=== PATIENT | male | born 1985 | race Caucasian/White ===

== ENCOUNTER 2017-01-03 10:03 | Emergency (ER) | payer BC ==
--- NOTE | 2017-01-03 10:31 | DIAGNOSTIC IMAGING REPORT ---
PROCEDURE: XR CHEST 1 VIEW INDICATION: CHEST PAIN TECHNIQUE: Portable AP view 10:00 a.m. COMPARISON: None. FINDINGS: Lungs are clear. Heart and mediastinum are normal. Thorax is normal. IMPRESSION: 1. Negative chest.
--- NOTE | 2017-01-03 15:02 | ED NURSING NOTES ---
Clinical Report - Nurses [facility] [address] [place] [place] [address] 01/03/2017 10:05 Patient: KIMMY MARY TRIAGE Triage time 1010. Acuity: LEVEL 3. Chief Complaint: CHEST PAIN and DISCOMFORT and ("heart racing" and anxiety, chest tightness). Alert. --10:18 Yuliet Latham R.N. 10:11 01/03/17. BP: 160/84. HR: 137. RR: 22. O2 saturation: 100%. Pain level now: 0/10. Additional comments: pt feels more calm now, states pain went away. --10:18 Yuliet Latham R.N. Weight: 99.7 kg stated. Height/Length: 74 inches Per Patient. BMI: 28.2. --10:12 Yuliet Latham R.N. Medications None. --10:14 Yuliet Latham R.N. Allergies No Known Drug Allergy. --10:14 Yuliet Latham R.N. History Arrived by private vehicle. Historian: patient. Unaccompanied. Primary physician (none). This started just prior to arrival and today. Onset. 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 SOCIAL HX: Light tobacco smoker. Alcohol use. (3-4 beers every other day). --10:18 Yuliet Latham R.N. PROBLEMS: Anxiety Reaction. --10:15 Yuliet Latham R.N. ADDITIONAL SURGERIES: Polyps. --10:15 Yuliet Latham R.N. Interventions ID band on patient. To room. --10:18 Yuliet Latham R.N. PHYSICAL ASSESSMENT 10:15. To room via stretcher. Patient gowned. GENERAL / NEURO / PSYCH: Alert. Oriented X 4. Appears anxious. RESPIRATORY: Mild respiratory distress. Chest wall tenderness. CVS: Cardiac rhythm: sinus tachycardia. GI / : Abdomen soft. EXTREMITIES: No lower extremity edema. SKIN: Skin is warm and dry. --10:26 Madeleine Moore R.N. NURSING PROGRESS NOTES 10:11. Oxygen administered by nasal cannula at 2 liters. rn family placed on patient; (ST). Patient gowned. Head of bed elevated. Reassurance given. Patient identifiers checked. Call light placed in reach. Side rails up. Bed placed in lowest position. Patient ready for evaluation- chart flagged. ( placed in room by triage nurse). --10:23 Madeleine Moore R.N. 10:13. EKG time: (1013). EKG was ordered, performed by a tech and shown to the ED physician. done by PHUONG Bermudez. --10:24 Madeleine Moore R.N. 10:15. Care transferred and report received. --10:25 Madeleine Moore R.N. 10:17 01/03/2017 Site #1 started via IV in the left antecubital space with an 20g angiocath, with aseptic technique and good blood return; one attempt. Blood drawn: rainbow set. Labeled in the presence of the patient and sent to the lab. Saline lock flushed with 10 mL saline. --10:27 Madeleine Moore R.N. 10:26 01/03/17. Portable chest x-ray ordered, performed and shown to the ED physician. --10:26 Madeleine Moore R.N. 10:32 01/03/2017 Started bag #1 1000 mL IV Fluids IV NS (Saline); at 1000 mL/hr over 1 hour(s) via site #1 via IV pump. IV patency established. IV site checked: no pain, redness, or swelling. IV flushed thoroughly pre- and post-medication administration. --10:42 Madeleine Moore R.N. 10:41 01/03/17. Finger stick glucose: 113 mg/dL. --10:41 Barrington Smallwood 10:43 01/03/17. BP: 154/72. HR: 107. RR: 22. O2 saturation: 100% on nasal cannula. Temp: deferred. Pain level now: 0/10. --10:44 Madeleine Moore R.N. 10:55 01/03/2017 Potassium Chloride (Potassium Chloride ER) PO Capsules 40 meq given. Allergies verified and confirmed 5 rights. --11:00 Madeleine Moore R.N. 10:50. ( Lab called with critical value K= = 2.7 ERMD notified). --11:02 Madeleine Moore R.N. 11:06 01/03/2017 Famotidine PO Tablets 20 mg given. --11:06 Madeleine Moore R.N. 11:00 ERMD in to talk with pt about lab results. Pt c/o epigastric burning. additional meds ordered and given. --11:07 Madeleine Moore R.N. 11:10 01/03/17. BP: 154/79. HR: 97. RR: 18. O2 saturation: 100%. Temp: deferred. Pain level now: 010. --11:11 Madeleine Moore R.N. 11:13 01/03/17. ( pt states "heartburn is better" resting quietly, watching t.v.). --11:13 Madeleine Moore R.N. 11:30. Patient ID band checked for patient name and birthdate. Clean catch urine collected with return of yellow-colored clear urine; sample sent to lab for urinalysis, culture and drug screen. Specimen labeled in the presence of the patient (voided 400cc at bedside with urinal, UA to lab). --11:32 Madeleine Moore R.N. 11:30 01/03/17. BP: 114/74. HR: 94. RR: 18. O2 saturation: 100%. Temp: deferred. Pain level now: 0/10. --11:34 Madeleine Moore R.N. 12:12 01/03/17. BP: 125/72. HR: 88. RR: 18. O2 saturation: 100%. Temp: deferred. Pain level now: 0/10. --12:12 Madeleine Moore R.N. 13:38 01/03/17. BP: 126/75. HR: 87. RR: 18. O2 saturation: 98% on room air. Temp: deferred. Pain level now: 0/10. Additional comments: watching rae conde for additional lab draw . --13:39 Madeleine Moore R.N. 11:40 01/03/2017 IV Fluids IV NS Discontinued: bag #1 infused. Total amount infused: 1000 mL. IV patency established. IV site checked: no pain, redness, or swelling. IV flushed thoroughly. (converted to saline lock). --14:02 Madeleine Moore R.N. 14:05 01/03/17. Patient ID band checked for patient name and birthdate. Blood samples drawn by lab per protocol ; labeled in presence of the patient and sent to lab. --14:05 Madeleine Moore R.N. 14:35. ( at bedside talking with pt. denies pain, waiting for repeat lab). --15:11 Madeleine Moore R.N. 14:55 01/03/2017 Site #1 removed upon discharge. Bandaid applied. --15:15 Madeleine Moore R.N. DISPOSITION / DISCHARGE 15:05. Condition at departure: improved and stable. No learning barriers present. Discharge instructions provided and reviewed with the patient and spouse. Reviewed medication(s) (zofran, alprazolam). Patient and spouse verbalized understanding. The patient was discharged home and accompanied by spouse. He left the Emergency Department ambulatory and via private vehicle. Spouse driving. --15:11 Madeleine Moore R.N. 15:00 01/03/17. BP: 125/68. HR: 78. RR: 18. O2 saturation: 99%. Temp: deferred. Pain level now: 0/10. --15:11 Madeleine Moore R.N. 15:05. KAMALJIT COMA SCORE: Kamaljit Coma Scale: 15- eyes open spontaneously (4); best verbal response- oriented x 4 (5); best motor response- obeys commands (6). --15:14 Madeleine Moore R.N. Locked/Released at 01/03/2017 15:15 by Madeleine Moore R.N.
--- NOTE | 2017-01-03 15:02 | ED ORDER SUMMARY ---
..... Patient: KIMMY MARY OrderSheet [facility] VisitID: [id number] [place] [address] 31y, M Registration Date/Time: 01/03/2017 ORDER SHEET Weight: 99.7 kg (stated) Allergies: No Known Drug Allergy GENERAL ORDERS: Chest 1V Urgent (10:01/03/2017 Sergio Helm) (Ack 10:25 TBergley) (10:27 DDean R.N.) CBC w Diff Urgent (10:01/03/2017 Sergio Helm) (Ack 10:25 TBergley) (10:27 DDean R.N.) CMP Urgent (10:01/03/2017 Sergio Helm) (Ack 10:25 TBergley) (10:27 DDean R.N.) UA-Culture if indicated Urgent (10:01/03/2017 Sergio Helm) (Ack 10:25 TBergley) (12:36 DDean R.N.) Urine Drug Screen Urgent (10:01/03/2017 Sergio Helm) (Ack 10:25 TBergley) (12:36 DDean R.N.) EKG - ER Stat (10:43 01/03/2017 [place] verbal order read back to Sergio Helm) (10:43 [place]) Potassium Urgent (14:00 01/03/2017 DDean R.N. per protocol) (14:02 [place]) MEDICATION ORDERS: Potassium Chloride PO 40 meq (NOW) (10:55 01/03/2017 Sergio Helm) (11:00 DDean R.N.) Famotidine PO 20 mg (NOW) (11:02 01/03/2017 Sergio Helm) (Ack 11:03 DDean R.N.) (11:06 DDean R.N.) IV FLUIDS: IV NS : initial bolus none -, then 1000 mL/hr for X1 (NOW) (10:18 01/03/2017 Sergio Helm) (Ack 10:27 DDean R.N.) (10:42 Fransisco Rodriguez) ORDER SHEET NOTES: [Electronically signed by Madeleine Moore R.N. (15:15 01/03/2017)] [Electronically signed by Lawrence Cole Dr. (09:58 01/04/2017)] [Electronically locked/signed by Madeleine Moore R.N. (15:15 01/03/2017)]
--- NOTE | 2017-01-03 15:02 | ED CLINICAL REPORT ---
Clinical Report - Physicians/Mid Levels [facility] [address] [place] [place] [address] 01/03/2017 10:05 Patient: KIMMY MARY Time Seen: 10:18; initial patient contact. Arrived- By private vehicle. Historian- patient. HISTORY OF PRESENT ILLNESS Chief Complaint: DYSPNEA. This started today and is still present (persistent). It was abrupt in onset and has been constant. The dyspnea is described as moderate. He has not had worsening of dyspnea with walking or exertion. No improvement of dyspnea with rest or sitting upright. No cough, sputum production, fever, chills or dizziness. No tingling. He has experienced sweating episodes and had anxiety and palpitations. He has had mild generalized chest tightness. Similar symptoms previously: Several times. Recent medical care: Not recently seen/assessed. REVIEW OF SYSTEMS The patient has had nausea, vomiting and diarrhea. No abdominal pain, headache or fainting episodes. All systems otherwise negative, except as recorded above. PAST HISTORY Anxiety Reaction. SURGERIES: Polyps. SOCIAL HISTORY Light tobacco smoker. Occasional alcohol use. No drug use. ADDITIONAL NOTES The nursing notes have been reviewed. PHYSICAL EXAM Vital Signs: 01/03/2017 10:11 BP: 160/84. HR: 137. RR: 22. O2 saturation: 100%. Pain level now: 0/10. Have been reviewed. Hypertensive. Tachycardic. Tachypneic. Temperature normal. Oxygen saturation normal. Appearance: Anxious. Anxious. Patient in mild distress. Eyes: Eyes normal inspection. ENT: Pharynx normal. Neck: Normal inspection. Jugular venous distention present. Neck supple. CVS: Tachycardia. Heart sounds normal. Rhythm normal. Respiratory: No respiratory distress. Breath sounds normal. Abdomen: Soft and nontender. No organomegaly. Skin: Skin warm and dry. Normal skin color. Neuro: Oriented X 3. Psych: Mood and affect normal. Speech normal. Cognition normal. Thought process and content normal. Insight and judgement normal. LABS, X-RAYS, AND EKG EKG: EKG time: (1013). Narrow-complex tachycardia (ventricular rate 142). Normal P waves. Normal REX. Normal QRS complex. Normal axis. Normal ST and T waves, QT and QTc. Prior EKG unavailable. The study has been interpreted contemporaneously by me. The study has been independently viewed by me. The EKG appears to be a good tracing. Interpretation time: 1013. Chest X-ray: No acute disease. Normal lung markings present. Normal heart size. Mediastinum normal. Great vessels normal. No infiltrate. Views: AP. Technique: good. The X-rays were independently viewed by me and interpreted contemporaneously by me. Prior films were not available for comparison. Laboratory Tests: UA-Culture if indicated: (YVETTE: 01/03/2017 11:25) ( MsgRcvd 01/03/2017 12:00) Final results Test Result Flag Units (Reference) URINE COLOR STRAW URINE APPEARANCE CLEAR URINE GLUCOSE NEGATIVE (NEGATIVE) URINE BILIRUBIN NEGATIVE (NEGATIVE) URINE KETONE NEGATIVE (NEGATIVE) URINE SPECIFIC GRAVITY <= 1.005 L (1.010-1.030) URINE PH 7.5 (5.0-8.0) URINE PROTEIN NEGATIVE (NEGATIVE) URINE UROBILINOGEN 0.2 EU/dL (0.2-1.0) URINE NITRITE NEGATIVE (NEGATIVE) URINE BLOOD NEGATIVE (NEGATIVE) URINE LEUK ESTERASE NEGATIVE (NEGATIVE) URINE RBC NONE SEEN rbc/hpf (0-1) URINE WBC NONE SEEN wbc/hpf (0-1) URINE EPITHELIAL CELLS NONE SEEN EPI/hpf (0-5) URINE BACTERIA NONE SEEN (NONE SEEN) URINE COMMENT CULT NOT INDICATED URINE CULTURES ARE SET-UP BASED ON THE FOLLOWING CRITERIA:POSITIVE NITRITEPOSITIVE LEUKOCYTE ESTERASEGREATER THAN 10 WHITE BLOOD CELLSMODERATE (2+) OR GREATER BACTERIA CBC w Diff: (YVETTE: 01/03/2017 10:18) ( MsgRcvd 01/03/2017 10:29) Final results Test Result Flag Units (Reference) WHITE BLOOD COUNT 7.8 K/uL (4.5-11.5) RED BLOOD COUNT 5.34 M/uL (4.50-5.90) HEMOGLOBIN 16.2 gm/dL (13.5-17.5) HEMATOCRIT 47.7 % (41.0-53.0) MEAN CELL VOLUME 89 fL (80-100) MEAN CORPUSCULAR HGB 30 pg (26-34) MEAN CORPUSCULAR HGB CONC 34 g/dL (31-37) RED CELL DISTRIBUTION WIDTH 12.6 % (11.6-14.8) PLATELET COUNT 380 K/uL (150-400) NEUTROPHIL % 51.7 % (50-75) LYMPH % 34.0 % (25-40) MONO % 11.1 % (3-14) EOSINOPHIL % 2.7 % (0-4) BASOPHIL % 0.5 % (0-2) [id number]: (YVETTE: 01/03/2017 14:02) ( [facility] 14[facility]22) Final results Test Result Flag Units (Reference) POTASSIUM 4.4 # mmol/L (3.5-5.1) Urine Drug Screen: (YVETTE: 01/03/2017 11:25) ( [facility] 01/03/2017 11:50) Final results Test Result Flag Units (Reference) AMPHETAMINE/METHAMPHETAMINE NEGATIVE (NEGATIVE) BARBITURATE NEGATIVE (NEGATIVE) BENZODIAZEPINE NEGATIVE (NEGATIVE) CANNABINOID NEGATIVE (NEGATIVE) COCAINE NEGATIVE (NEGATIVE) ECSTASY NEGATIVE (NEGATIVE) METHADONE NEGATIVE (NEGATIVE) OPIATE NEGATIVE (NEGATIVE) The urine drug screen is a qualitative screening test fordrug overdose and abuse. All screen results should beconsidered as presumptive.Drugs screened for are as follows:BenzodiazepinesCocaineAmphetamines/MetamphetaminesTHC (Tetrahydrocannabinol)OpiatesBarbituratesEcstasyMethadonePositive results are unconfirmed. For confirmation, notifythe lab for the specimen to be sent to the reference lab.All confirmations must be performed by a differentmethodology.The ingestion of natural herbal and plant productscontaining Ephedra/Ephedra metabolites can produce in urineone or more substances capable of cross reacting withamphetamine/methamphetamine immunoassays. These testsprovide a preliminary result only. A more specificalternative chemical method must be used to obtain aconfirmed analytical result. CMP: (YVETTE: 01/03/2017 10:18) ( [facility] 01/03/2017 10:54) Final results Test Result Flag Units (Reference) GLUCOSE 130 H mg/dL (70-110) BUN 11 mg/dL (7-18) CREATININE 1.0 mg/dL (0.6-1.3) Estimated GFR >60 mL/min Estimated GFR- >60 mL/min Note: Persistent reduction over 3 months in eGFR<60 mL/min/1.73 m2 defines CKD. Patients with eGFR values>=60 mL/min/1.73 m2 may also have CKD if evidence ofpersistent proteinuria. Additional information may be foundat [email or web address].org. SODIUM 140 mmol/L (136-145) POTASSIUM 2.7 *L mmol/L (3.5-5.1) CRITICAL RESULTS CALLEDCalled to ROMIE GUSTAFSON RN 01/03/17 1052Were 2 patient identifiers used? YWas the result read back? Y CHLORIDE 103 mmol/L (98-107) CARBON DIOXIDE 23 mmol/L (21-32) CALCIUM 9.0 mg/dL (8.5-10.1) TOTAL PROTEIN 7.8 g/dL (6.4-8.2) ALBUMIN 4.2 g/dL (3.3-5.0) BILIRUBIN, TOTAL 0.5 mg/dL (0.0-1.0) ALKALINE PHOSPHATASE 79 U/L (46-116) AST (SGOT) 23 U/L (15-37) ALT (SGPT) 36 U/L (12-78) MAGNESIUM 1.9 mg/dL (1.8-2.4) . PROGRESS AND PROCEDURES Disposition: Discharged home in good and improved condition. Condition: good. CLINICAL IMPRESSION Anxiety reaction. Acute viral gastroenteritis. Hypokalemia INSTRUCTIONS Do not work today. Your Current Medications: CONTINUE TAKING THE FOLLOWING MEDICATIONS: None*. Prescription Medications: Zofran (orally disintegrating tablets) 4 mg: take 1 orally every 6 hours as needed for nausea and vomiting. Dispense ten (10). No refill. Substitution is permissible. Alprazolam 0.5 mg: take 1 orally every 8 hours as needed for anxiety. Dispense fifteen (15). No refill. Follow-up: Screening today revealed the patient's blood pressure to be in the pre-hypertensive range. The patient should follow up with a primary care provider for blood pressure management. Follow-up with: [facility], [facility], , [address] [place] [address], [id number], [place] [phone] Follow up in about four days. Call for an appointment. (Electronically signed by Lawrence Cole Dr. 01/04/2017 9:58)
--- NOTE | 2017-01-03 15:02 | ED ORDER SUMMARY ---
..... Patient: KIMMY MARY OrderSheet [facility] VisitID: [id number] [place] [address] 31y, M Registration Date/Time: 01/03/2017 ORDER SHEET Weight: 99.7 kg (stated) Allergies: No Known Drug Allergy GENERAL ORDERS: Chest 1V Urgent (10:01/03/2017 Sergio Helm) (Ack 10:25 TBergley) (10:27 DDean R.N.) CBC w Diff Urgent (10:01/03/2017 Sergio Helm) (Ack 10:25 TBergley) (10:27 DDean R.N.) CMP Urgent (10:01/03/2017 Sergio Helm) (Ack 10:25 TBergley) (10:27 DDean R.N.) UA-Culture if indicated Urgent (10:01/03/2017 Sergio Helm) (Ack 10:25 TBergley) (12:36 DDean R.N.) Urine Drug Screen Urgent (10:01/03/2017 Sergio Helm) (Ack 10:25 TBergley) (12:36 DDean R.N.) EKG - ER Stat (10:43 01/03/2017 [place] verbal order read back to Sergio Helm) (10:43 [place]) Potassium Urgent (14:00 01/03/2017 DDean R.N. per protocol) (14:02 [place]) MEDICATION ORDERS: Potassium Chloride PO 40 meq (NOW) (10:55 01/03/2017 Sergio Helm) (11:00 DDean R.N.) Famotidine PO 20 mg (NOW) (11:02 01/03/2017 Sergio Helm) (Ack 11:03 DDean R.N.) (11:06 DDean R.N.) IV FLUIDS: IV NS : initial bolus none -, then 1000 mL/hr for X1 (NOW) (10:18 01/03/2017 Sergio Helm) (Ack 10:27 DDean R.N.) (10:42 Fransisco Rodriguez) ORDER SHEET NOTES: [Electronically signed by Madeleine Moore R.N. (15:15 01/03/2017)] [Electronically signed by Lawrence Cole Dr. (09:58 01/04/2017)] [Electronically locked/signed by Madeleine Moore R.N. (15:15 01/03/2017)]
--- NOTE | 2017-01-03 15:02 | ED NURSING NOTES ---
Clinical Report - Nurses [facility] [address] [place] [address] 01/03/2017 10:05 Patient: KIMMY MARY TRIAGE Triage time 1010. Acuity: LEVEL 3. Chief Complaint: CHEST PAIN and DISCOMFORT and ("heart racing" and anxiety, chest tightness). Alert. --10:18 Yuliet Latham R.N. 10:11 01/03/17. BP: 160/84. HR: 137. RR: 22. O2 saturation: 100%. Pain level now: 0/10. Additional comments: pt feels more calm now, states pain went away. --10:18 Yuliet Latham R.N. Weight: 99.7 kg stated. Height/Length: 74 inches Per Patient. BMI: 28.2. --10:12 Yuliet Latham R.N. Medications None. --10:14 Yuliet Latham R.N. Allergies No Known Drug Allergy. --10:14 Yuliet Latham R.N. History Arrived by private vehicle. Historian: patient. Unaccompanied. Primary physician (none). This started just prior to arrival and today. Onset. 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 SOCIAL HX: Light tobacco smoker. Alcohol use. (3-4 beers every other day). --10:18 Yuliet Latham R.N. PROBLEMS: Anxiety Reaction. --10:15 Yuliet Latham R.N. ADDITIONAL SURGERIES: Polyps. --10:15 Yuliet Latham R.N. Interventions ID band on patient. To room. --10:18 Yuliet Latham R.N. PHYSICAL ASSESSMENT 10:15. To room via stretcher. Patient gowned. GENERAL / NEURO / PSYCH: Alert. Oriented X 4. Appears anxious. RESPIRATORY: Mild respiratory distress. Chest wall tenderness. CVS: Cardiac rhythm: sinus tachycardia. GI / : Abdomen soft. EXTREMITIES: No lower extremity edema. SKIN: Skin is warm and dry. --10:26 Madeleine Moore R.N. NURSING PROGRESS NOTES 10:11. Oxygen administered by nasal cannula at 2 liters. coding assistant placed on patient; (ST). Patient gowned. Head of bed elevated. Reassurance given. Patient identifiers checked. Call light placed in reach. Side rails up. Bed placed in lowest position. Patient ready for evaluation- chart flagged. ( placed in room by triage nurse). --10:23 Madeleine Moore R.N. 10:13. EKG time: (1013). EKG was ordered, performed by a tech and shown to the ED physician. done by PHUONG Bermudez. --10:24 Madeleine Moore R.N. 10:15. Care transferred and report received. --10:25 Madeleine Moore R.N. 10:17 01/03/2017 Site #1 started via IV in the left antecubital space with an 20g angiocath, with aseptic technique and good blood return; one attempt. Blood drawn: rainbow set. Labeled in the presence of the patient and sent to the lab. Saline lock flushed with 10 mL saline. --10:27 Madeleine Moore R.N. 10:26 01/03/17. Portable chest x-ray ordered, performed and shown to the ED physician. --10:26 Madeleine Moore R.N. 10:32 01/03/2017 Started bag #1 1000 mL IV Fluids IV NS (Saline); at 1000 mL/hr over 1 hour(s) via site #1 via IV pump. IV patency established. IV site checked: no pain, redness, or swelling. IV flushed thoroughly pre- and post-medication administration. --10:42 Madeleine Moore R.N. 10:41 01/03/17. Finger stick glucose: 113 mg/dL. --10:41 Barrington Smallwood 10:43 01/03/17. BP: 154/72. HR: 107. RR: 22. O2 saturation: 100% on nasal cannula. Temp: deferred. Pain level now: 0/10. --10:44 Madeleine Moore R.N. 10:55 01/03/2017 Potassium Chloride (Potassium Chloride ER) PO Capsules 40 meq given. Allergies verified and confirmed 5 rights. --11:00 Madeleine Moore R.N. 10:50. ( Lab called with critical value K= = 2.7 ERMD notified). --11:02 Madeleine Moore R.N. 11:06 01/03/2017 Famotidine PO Tablets 20 mg given. --11:06 Madeleine Moore R.N. 11:00 ERMD in to talk with pt about lab results. Pt c/o epigastric burning. additional meds ordered and given. --11:07 Madeleine Moore R.N. 11:10 01/03/17. BP: 154/79. HR: 97. RR: 18. O2 saturation: 100%. Temp: deferred. Pain level now: 010. --11:11 Madeleine Moore R.N. 11:13 01/03/17. ( pt states "heartburn is better" resting quietly, watching t.v.). --11:13 Madeleine Moore R.N. 11:30. Patient ID band checked for patient name and birthdate. Clean catch urine collected with return of yellow-colored clear urine; sample sent to lab for urinalysis, culture and drug screen. Specimen labeled in the presence of the patient (voided 400cc at bedside with urinal, UA to lab). --11:32 Madeleine Moore R.N. 11:30 01/03/17. BP: 114/74. HR: 94. RR: 18. O2 saturation: 100%. Temp: deferred. Pain level now: 0/10. --11:34 Madeleine Moore R.N. 12:12 01/03/17. BP: 125/72. HR: 88. RR: 18. O2 saturation: 100%. Temp: deferred. Pain level now: 0/10. --12:12 Madeleine Moore R.N. 13:38 01/03/17. BP: 126/75. HR: 87. RR: 18. O2 saturation: 98% on room air. Temp: deferred. Pain level now: 0/10. Additional comments: watching rae conde for additional lab draw . --13:39 Madeleine Moore R.N. 11:40 01/03/2017 IV Fluids IV NS Discontinued: bag #1 infused. Total amount infused: 1000 mL. IV patency established. IV site checked: no pain, redness, or swelling. IV flushed thoroughly. (converted to saline lock). --14:02 Madeleine Moore R.N. 14:05 01/03/17. Patient ID band checked for patient name and birthdate. Blood samples drawn by lab per protocol ; labeled in presence of the patient and sent to lab. --14:05 Madeleine Moore R.N. 14:35. ( at bedside talking with pt. denies pain, waiting for repeat lab). --15:11 Madeleine Moore R.N. 14:55 01/03/2017 Site #1 removed upon discharge. Bandaid applied. --15:15 Madeleine Moore R.N. DISPOSITION / DISCHARGE 15:05. Condition at departure: improved and stable. No learning barriers present. Discharge instructions provided and reviewed with the patient and spouse. Reviewed medication(s) (zofran, alprazolam). Patient and spouse verbalized understanding. The patient was discharged home and accompanied by spouse. He left the Emergency Department ambulatory and via private vehicle. Spouse driving. --15:11 Madeleine Moore R.N. 15:00 01/03/17. BP: 125/68. HR: 78. RR: 18. O2 saturation: 99%. Temp: deferred. Pain level now: 0/10. --15:11 Madeleine Moore R.N. 15:05. KAMALJIT COMA SCORE: Kamaljit Coma Scale: 15- eyes open spontaneously (4); best verbal response- oriented x 4 (5); best motor response- obeys commands (6). --15:14 Madeleine Moore R.N. Locked/Released at 01/03/2017 15:15 by Madeleine Moore R.N.
--- NOTE | 2017-01-03 15:02 | ED CLINICAL REPORT ---
Clinical Report - Physicians/Mid Levels [facility] [address] [place] [address] 01/03/2017 10:05 Patient: KIMMY MARY Time Seen: 10:18; initial patient contact. Arrived- By private vehicle. Historian- patient. HISTORY OF PRESENT ILLNESS Chief Complaint: DYSPNEA. This started today and is still present (persistent). It was abrupt in onset and has been constant. The dyspnea is described as moderate. He has not had worsening of dyspnea with walking or exertion. No improvement of dyspnea with rest or sitting upright. No cough, sputum production, fever, chills or dizziness. No tingling. He has experienced sweating episodes and had anxiety and palpitations. He has had mild generalized chest tightness. Similar symptoms previously: Several times. Recent medical care: Not recently seen/assessed. REVIEW OF SYSTEMS The patient has had nausea, vomiting and diarrhea. No abdominal pain, headache or fainting episodes. All systems otherwise negative, except as recorded above. PAST HISTORY Anxiety Reaction. SURGERIES: Polyps. SOCIAL HISTORY Light tobacco smoker. Occasional alcohol use. No drug use. ADDITIONAL NOTES The nursing notes have been reviewed. PHYSICAL EXAM Vital Signs: 01/03/2017 10:11 BP: 160/84. HR: 137. RR: 22. O2 saturation: 100%. Pain level now: 0/10. Have been reviewed. Hypertensive. Tachycardic. Tachypneic. Temperature normal. Oxygen saturation normal. Appearance: Anxious. Anxious. Patient in mild distress. Eyes: Eyes normal inspection. ENT: Pharynx normal. Neck: Normal inspection. Jugular venous distention present. Neck supple. CVS: Tachycardia. Heart sounds normal. Rhythm normal. Respiratory: No respiratory distress. Breath sounds normal. Abdomen: Soft and nontender. No organomegaly. Skin: Skin warm and dry. Normal skin color. Neuro: Oriented X 3. Psych: Mood and affect normal. Speech normal. Cognition normal. Thought process and content normal. Insight and judgement normal. LABS, X-RAYS, AND EKG EKG: EKG time: (1013). Narrow-complex tachycardia (ventricular rate 142). Normal P waves. Normal REX. Normal QRS complex. Normal axis. Normal ST and T waves, QT and QTc. Prior EKG unavailable. The study has been interpreted contemporaneously by me. The study has been independently viewed by me. The EKG appears to be a good tracing. Interpretation time: 1013. Chest X-ray: No acute disease. Normal lung markings present. Normal heart size. Mediastinum normal. Great vessels normal. No infiltrate. Views: AP. Technique: good. The X-rays were independently viewed by me and interpreted contemporaneously by me. Prior films were not available for comparison. Laboratory Tests: UA-Culture if indicated: (YVETTE: 01/03/2017 11:25) ( MsgRcvd 01/03/2017 12:00) Final results Test Result Flag Units (Reference) URINE COLOR STRAW URINE APPEARANCE CLEAR URINE GLUCOSE NEGATIVE (NEGATIVE) URINE BILIRUBIN NEGATIVE (NEGATIVE) URINE KETONE NEGATIVE (NEGATIVE) URINE SPECIFIC GRAVITY <= 1.005 L (1.010-1.030) URINE PH 7.5 (5.0-8.0) URINE PROTEIN NEGATIVE (NEGATIVE) URINE UROBILINOGEN 0.2 EU/dL (0.2-1.0) URINE NITRITE NEGATIVE (NEGATIVE) URINE BLOOD NEGATIVE (NEGATIVE) URINE LEUK ESTERASE NEGATIVE (NEGATIVE) URINE RBC NONE SEEN rbc/hpf (0-1) URINE WBC NONE SEEN wbc/hpf (0-1) URINE EPITHELIAL CELLS NONE SEEN EPI/hpf (0-5) URINE BACTERIA NONE SEEN (NONE SEEN) URINE COMMENT CULT NOT INDICATED URINE CULTURES ARE SET-UP BASED ON THE FOLLOWING CRITERIA:POSITIVE NITRITEPOSITIVE LEUKOCYTE ESTERASEGREATER THAN 10 WHITE BLOOD CELLSMODERATE (2+) OR GREATER BACTERIA CBC w Diff: (YVETTE: 01/03/2017 10:18) ( MsgRcvd 01/03/2017 10:29) Final results Test Result Flag Units (Reference) WHITE BLOOD COUNT 7.8 K/uL (4.5-11.5) RED BLOOD COUNT 5.34 M/uL (4.50-5.90) HEMOGLOBIN 16.2 gm/dL (13.5-17.5) HEMATOCRIT 47.7 % (41.0-53.0) MEAN CELL VOLUME 89 fL (80-100) MEAN CORPUSCULAR HGB 30 pg (26-34) MEAN CORPUSCULAR HGB CONC 34 g/dL (31-37) RED CELL DISTRIBUTION WIDTH 12.6 % (11.6-14.8) PLATELET COUNT 380 K/uL (150-400) NEUTROPHIL % 51.7 % (50-75) LYMPH % 34.0 % (25-40) MONO % 11.1 % (3-14) EOSINOPHIL % 2.7 % (0-4) BASOPHIL % 0.5 % (0-2) [id number]: (YVETTE: 01/03/2017 14:02) ( [facility] [place] 01/03/[place] 14:22) Final results Test Result Flag Units (Reference) POTASSIUM 4.4 # mmol/L (3.5-5.1) Urine Drug Screen: (YVETTE: 01/03/2017 11:25) ( [facility] 01/03/2017 11:50) Final results Test Result Flag Units (Reference) AMPHETAMINE/METHAMPHETAMINE NEGATIVE (NEGATIVE) BARBITURATE NEGATIVE (NEGATIVE) BENZODIAZEPINE NEGATIVE (NEGATIVE) CANNABINOID NEGATIVE (NEGATIVE) COCAINE NEGATIVE (NEGATIVE) ECSTASY NEGATIVE (NEGATIVE) METHADONE NEGATIVE (NEGATIVE) OPIATE NEGATIVE (NEGATIVE) The urine drug screen is a qualitative screening test fordrug overdose and abuse. All screen results should beconsidered as presumptive.Drugs screened for are as follows:BenzodiazepinesCocaineAmphetamines/MetamphetaminesTHC (Tetrahydrocannabinol)OpiatesBarbituratesEcstasyMethadonePositive results are unconfirmed. For confirmation, notifythe lab for the specimen to be sent to the reference lab.All confirmations must be performed by a differentmethodology.The ingestion of natural herbal and plant productscontaining Ephedra/Ephedra metabolites can produce in urineone or more substances capable of cross reacting withamphetamine/methamphetamine immunoassays. These testsprovide a preliminary result only. A more specificalternative chemical method must be used to obtain aconfirmed analytical result. CMP: (YVETTE: 01/03/2017 10:18) ( [facility] 01/03/2017 10:54) Final results Test Result Flag Units (Reference) GLUCOSE 130 H mg/dL (70-110) BUN 11 mg/dL (7-18) CREATININE 1.0 mg/dL (0.6-1.3) Estimated GFR >60 mL/min Estimated GFR- >60 mL/min Note: Persistent reduction over 3 months in eGFR<60 mL/min/1.73 m2 defines CKD. Patients with eGFR values>=60 mL/min/1.73 m2 may also have CKD if evidence ofpersistent proteinuria. Additional information may be foundat www.[email or web address].org. SODIUM 140 mmol/L (136-145) POTASSIUM 2.7 *L mmol/L (3.5-5.1) CRITICAL RESULTS CALLEDCalled to ROMIE GUSTAFSON RN 01/03/17 1052Were 2 patient identifiers used? YWas the result read back? Y CHLORIDE 103 mmol/L (98-107) CARBON DIOXIDE 23 mmol/L (21-32) CALCIUM 9.0 mg/dL (8.5-10.1) TOTAL PROTEIN 7.8 g/dL (6.4-8.2) ALBUMIN 4.2 g/dL (3.3-5.0) BILIRUBIN, TOTAL 0.5 mg/dL (0.0-1.0) ALKALINE PHOSPHATASE 79 U/L (46-116) AST (SGOT) 23 U/L (15-37) ALT (SGPT) 36 U/L (12-78) MAGNESIUM 1.9 mg/dL (1.8-2.4) . PROGRESS AND PROCEDURES Disposition: Discharged home in good and improved condition. Condition: good. CLINICAL IMPRESSION Anxiety reaction. Acute viral gastroenteritis. Hypokalemia INSTRUCTIONS Do not work today. Your Current Medications: CONTINUE TAKING THE FOLLOWING MEDICATIONS: None*. Prescription Medications: Zofran (orally disintegrating tablets) 4 mg: take 1 orally every 6 hours as needed for nausea and vomiting. Dispense ten (10). No refill. Substitution is permissible. Alprazolam 0.5 mg: take 1 orally every 8 hours as needed for anxiety. Dispense fifteen (15). No refill. Follow-up: Screening today revealed the patient's blood pressure to be in the pre-hypertensive range. The patient should follow up with a primary care provider for blood pressure management. Follow-up with: [facility], [facility], , [address] [place] [address], [address], [place] [phone] Follow up in about four days. Call for an appointment. (Electronically signed by Lawrence Cole Dr. 01/04/2017 9:58)
--- NOTE | 2017-01-04 09:59 | ED DISCHARGE INSTRUCTIONS ---
Patient: KIMMY MARY General Instructions [facility] VisitID: [id number] [place] [address] 31y, M Registration Date/Time: 01/03/2017 Anxiety reaction. Acute viral gastroenteritis. Hypokalemia INSTRUCTIONS Do not work today. Your Current Medications: CONTINUE TAKING THE FOLLOWING MEDICATIONS: None*. Prescription Medications: Zofran (orally disintegrating tablets) 4 mg: take 1 orally every 6 hours as needed for nausea and vomiting. Dispense ten (10). No refill. Substitution is permissible. Alprazolam 0.5 mg: take 1 orally every 8 hours as needed for anxiety. Dispense fifteen (15). No refill. Follow-up: Screening today revealed the patient's blood pressure to be in the pre-hypertensive range. The patient should follow up with a primary care provider for blood pressure management. Follow-up with: [facility], , [address] [place] [address], [address] [id number] Follow up in about four days. Call for an appointment. ADDITIONAL INFORMATION Stress Reaction Anxiety is the feeling we all get when we think something bad might happen. It is a normal response to stress and usually causes only a mild reaction. When anxiety becomes more severe, emotions may interfere with daily life. In some cases, you may not even be aware of what it is youre anxious about! During an anxiety reaction, you may feel like you are helpless, nervous, depressed or irritable. Your body may show signs of anxiety in many ways. You may experience dry mouth, shakiness, dizziness, weakness, trouble breathing, chest pressure, headache, nausea, diarrhea, tiredness, inability to sleep or sexual problems. Home Care: 1) Try to locate the sources of stress in your life. They may not be obvious! These may include: -- Daily hassles of life which pile up (traffic jams, missed appointments, car troubles, etc.) -- Major life changes, both good (new baby, job promotion) and bad (loss of job, loss of loved one) -- Overload: feeling that you have too many responsibilities and can't take care of all of them at once -- Feeling helpless, feeling that your problems are beyond what youre able to solve 2) Notice how your body reacts to stress. Learn to listen to your body signals. This will help you take action before the stress becomes severe. 3) When you can, do something about the source of your stress. (Avoid hassles, limit the amount of change that happens in your life at one time and take a break when you feel overloaded). 4) Unfortunately, many stressful situations cannot be avoided. It is necessary to learn HOW TO MANAGE STRESS better. There are many proven methods that will reduce your anxiety. These include simple things like exercise, good nutrition and adequate rest. Also, there are certain techniques that are helpful: relaxation and breathing exercises, visualization, biofeedback and meditation. For more information about this, consult your doctor or go to a local bookstore and review the many books and tapes available on this subject. Follow Up If you feel that your anxiety is not responding to self-help measures, contact your doctor or make an appointment with a counselor. Get Prompt Medical Attention if any of the following occur: -- Your symptoms get worse -- Chest pain or trouble breathing -- Severe headache not relieved by rest and mild pain reliever -- Rapid or irregular heartbeat, fainting Viral Gastroenteritis (6Yr-Adult) Gastroenteritis is another name for thestomach flu.It is most often caused by a virus that affects the stomach and intestinal tract. Symptoms include stomach cramping and fever, vomiting and/or diarrhea, and can last from 2 to 7 days. The danger from repeated vomiting or diarrhea is dehydration. This is the loss of too much water and minerals from the body. When this occurs, body fluids must be replaced. Antibiotics are not effective for this illness, but simple home treatment will be helpful. Home Care If symptoms are severe, rest at home for the next 24 hours. Avoid tobacco, caffeine, and alcohol use, which can worsen symptoms. Acetaminophen (Tylenol) or ibuprofen (Motrin, Advil) may be usedfor fever or pain unless another medication was prescribed. NOTE: If you have chronic liver or kidney disease or ever had a stomach ulcer or GI bleeding, talk with your doctor before using these medicines. Aspirin should never be used in anyone under 18 years of age who is ill with a fever. It may cause severe liver damage. If medicines for diarrhea or vomiting were prescribed, be sure they are takenonly as directed. If vomiting, drink small amounts of clear fluids (such as water, sports drinks, clear sodas) at frequent intervals to prevent dehydration. Start with 1 to 2 tablespoons every 10 minutes. Once vomiting stops, follow these guidelines: During The First 12 To 24 Hours follow the diet below: Beverages: Sport drinks like Gatorade, soft drinks without caffeine; anna bob, mineral water (plain or flavored), decaffeinated tea and coffee. Soups: Clear broth, consomm and bouillon Desserts: Plain gelatin (Jell-O), Popsicles and fruit juice bars. During The Next 24 Hours you may add the following to the above: Hot cereal, plain toast, bread, rolls, crackers Plain noodles, rice, mashed potatoes, chicken noodle or rice soup Unsweetened canned fruit (avoid pineapple), bananas Limit fat intake to less than 15 grams per day by avoiding margarine, butter, oils, mayonnaise, sauces, gravies, fried foods, peanut butter, meat, poultry, and fish. Limit fiber; avoid raw or cooked vegetables, fresh fruits (except bananas), and bran cereals. Limit caffeine and chocolate. Do not use spices or seasonings except salt. During The Next 24 Hours The patient can gradually resume a normal diet as symptoms lessen. Preventing Spread Hand washing with soap and water is the best way to prevent the spread of viruses. Caregivers should wash their hands before andafter touching the sick person. The sick person, as well as everyone in the family,should wash their hands after using the toilet and before meals. Clean the toilet after each use. People with diarrhea should not prepare food for others. If you are preparing your own foods, wash your hands before and after. Follow Up with your doctor as advised. Call your doctor if you are not improving over the next 2 to 3 days. If a stool (diarrhea) sample was taken, you may call in 2 days (or as directed) for the results. Get Prompt Medical Attention if any of the following occur: Increasing abdominal pain Continued vomiting (unable to keep liquids down) Frequent diarrhea (more than 5 times a day) Blood in vomit or stool (black or red color) Dark urine, reduced urine output, or extreme thirst Weakness, dizziness, fainting Drowsiness, confusion, stiff neck, or seizure Fever of 100.4F (38C) oral or higher, not better with fever medication New rash Hypokalemia Hypokalemia means a low level of potassium in the blood. This most often occurs in patients who take diuretics (water pills). It can also occur due to severe vomiting or diarrhea. A mild case usually causes no symptoms. It is only found with blood testing. More severe potassium loss causes generalized weakness, muscle or abdominal cramping, heart palpitations (rapid or irregular heartbeats) and low blood pressure. Home Care: 1) Take any potassium supplements prescribed. 2) Eat foods rich in potassium. The highest amount is found in artichoke, baked potatoes, spinach, cantaloupe, honeydew melon, cod, halibut, salmon, and scallops. White, red, or lee beans are also very good sources. A modest amount is found in orange juice, bananas, carrots, and tomato juice. 3) Certain types of diuretics (water pills), such as Lasix (furosemide), require that you take potassium supplements for as long as you take the diuretic pills. If you are taking a diuretic, discuss the need for potassium supplements with your doctor. Follow Up with your doctor for a repeat blood test within the next week or as advised by our staff. Get Prompt Medical Attention if any of the following occur: -- Increased weakness -- Feeling dizzy -- Irregular heartbeat, extra beats or very fast heart rate -- Fainting spell Ondansetron Oral disintegrating tablet What is this medicine? ONDANSETRON (on OANH se thuy) is used to treat nausea and vomiting caused by chemotherapy. It is also used to prevent or treat nausea and vomiting after surgery. How should I use this medicine? These tablets are made to dissolve in the mouth. Do not try to push the tablet through the foil backing. With dry hands, peel away the foil backing and gently remove the tablet. Place the tablet in the mouth and allow it to dissolve, then swallow. While you may take these tablets with water, it is not necessary to do so. Talk to your emergency department director regarding the use of this medicine in children. Special care may be needed. What side effects may I notice from receiving this medicine? Side effects that you should report to your doctor or health health care coordinator as soon as possible: allergic reactions like skin rash, itching or hives, swelling of the face, lips, or tongue breathing problems dizziness fast or irregular heartbeat feeling faint or lightheaded, falls fever and chills swelling of the hands and feet tightness in the chest Side effects that usually do not require medical attention (report to your doctor or health health care coordinator if they continue or are bothersome): constipation or diarrhea headache What may interact with this medicine? Do not take this medicine with any of the following medications: -apomorphine -cisapride -dofetilide -dronedarone -pimozide -thioridazine -ziprasidone This medicine may also interact with the following medications: -carbamazepine -phenytoin -rifampicin -tramadol -other medicines that prolong the QT interval (cause an abnormal heart rhythm) What if I miss a dose? If you miss a dose, take it as soon as you can. If it is almost time for your next dose, take only that dose. Do not take double or extra doses. Where should I keep my medicine? Keep out of the reach of children. Store between 2 and 30 degrees C (36 and 86 degrees F). Throw away any unused medicine after the expiration date. What should I tell my health care provider before I take this medicine? They need to know if you have any of these conditions: heart disease history of irregular heartbeat liver disease low levels of magnesium or potassium in the blood an unusual or allergic reaction to ondansetron, granisetron, other medicines, foods, dyes, or preservatives or trying to get breast-feeding What should I watch for while using this medicine? Check with your doctor or health health care coordinator as soon as you can if you have any sign of an allergic reaction. Alprazolam Oral tablet What is this medicine? ALPRAZOLAM (al PRAY antonia woodruff) is a benzodiazepine. It is used to treat anxiety and panic attacks. How should I use this medicine? Take this medicine by mouth with a glass of water. Follow the directions on the prescription label. Take your medicine at regular intervals. Do not take it more often than directed. If you have been taking this medicine regularly for some time, do not suddenly stop taking it. You must gradually reduce the dose or you may get severe side effects. Ask your doctor or health health care coordinator for advice. Even after you stop taking this medicine it can still affect your body for several days. Talk to your emergency department director regarding the use of this medicine in children. Special care may be needed. What side effects may I notice from receiving this medicine? Side effects that you should report to your doctor or health health care coordinator as soon as possible: allergic reactions like skin rash, itching or hives, swelling of the face, lips, or tongue confusion, forgetfulness depression difficulty sleeping difficulty speaking feeling faint or lightheaded, falls mood changes, excitability or aggressive behavior muscle cramps trouble passing urine or change in the amount of urine unusually weak or tired Side effects that usually do not require medical attention (report to your doctor or health health care coordinator if they continue or are bothersome): change in sex drive or performance changes in appetite What may interact with this medicine? Do not take this medicine with any of the following medications: certain medicines for HIV infection or AIDS ketoconazole itraconazole This medicine may also interact with the following medications: control pills certain macrolide antibiotics like clarithromycin, erythromycin, troleandomycin cimetidine cyclosporine ergotamine grapefruit juice herbal or dietary supplements like kava kava, melatonin, dehydroepiandrosterone, DHEA, Juan Luis's Wort or valerian imatinib, [id number] isoniazid levodopa medicines for depression, anxiety, or psychotic disturbances prescription pain medicines rifampin, rifapentine, or rifabutin some medicines for blood pressure or heart problems some medicines for seizures like carbamazepine, oxcarbazepine, phenobarbital, phenytoin, primidone What if I miss a dose? If you miss a dose, take it as soon as you can. If it is almost time for your next dose, take only that dose. Do not take double or extra doses. Where should I keep my medicine? Keep out of the reach of children. This medicine can be abused. Keep your medicine in a safe place to protect it from theft. Do not share this medicine with anyone. Selling or giving away this medicine is dangerous and against the law. Store at room temperature between 20 and 25 degrees C (68 and 77 degrees F). Throw away any unused medicine after the expiration date. What should I tell my health care provider before I take this medicine? They need to know if you have any of these conditions: an alcohol or drug abuse problem bipolar disorder, depression, psychosis or other mental health conditions glaucoma kidney or liver disease lung or breathing disease myasthenia gravis Parkinson's disease porphyria seizures or a history of seizures suicidal thoughts an unusual or allergic reaction to alprazolam, other benzodiazepines, foods, dyes, or preservatives or trying to get breast-feeding What should I watch for while using this medicine? Visit your doctor or health health care coordinator for regular checks on your progress. Your body can become dependent on this medicine. Ask your doctor or health health care coordinator if you still need to take it. You may get drowsy or dizzy. Do not drive, use machinery, or do anything that needs mental alertness until you know how this medicine affects you. To reduce the risk of dizzy and fainting spells, do not stand or sit up quickly, especially if you are an older patient. Alcohol may increase dizziness and drowsiness. Avoid alcoholic drinks. Do not treat yourself for coughs, colds or allergies without asking your doctor or health health care coordinator for advice. Some ingredients can increase possible side effects. You have been given the following additional information: Anxiety Reaction Gastroenteritis, Viral (6Y-Adult) Hypokalemia Ondansetron Oral disintegrating tablet Alprazolam Oral tablet Do not work today. (Electronically signed by Lawrence Cole Dr. 01/04/2017 9:58)
--- NOTE | 2017-01-04 10:00 | ED MED RECONCILIATION SUMMARY ---
Patient: KIMMY MARY Medication Reconciliation Report [facility] VisitID: [id number] [place] [address] 31y, M Registration Date/Time: 01/03/2017 Weight: 99.7 kg Height/Length: 74 in. BMI: 28.2 ALLERGIES: No Known Drug Allergy The patient's Home Medications are listed below: NONE. The source(s) of the original Home Medication information: Not obtained. The following Medications were given to the patient in the Emergency Department: IV NS IV Fluids bolus 0, then 1000 mL/hr, administered: 01/03/2017 10:32:00 AM Potassium Chloride [PO] PO 40 meq, administered: 01/03/2017 10:55:00 AM Famotidine [PO] PO 20 mg, administered: 01/03/2017 11:06:00 AM The following Medications were prescribed to the patient: Zofran (orally disintegrating tablets) 4 mg: take 1 orally every 6 hours as needed for nausea and vomiting. Dispense ten (10). No refill. Substitution is permissible. -- Lawrence Cole Dr. Alprazolam 0.5 mg: take 1 orally every 8 hours as needed for anxiety. Dispense fifteen (15). No refill. -- Lawrence Cole Dr.
--- NOTE | 2017-01-04 10:00 | ED MED RECONCILIATION SUMMARY ---
Patient: KIMMY MARY Medication Reconciliation Report [facility] VisitID: [id number] [place] [address] 31y, M Registration Date/Time: 01/03/2017 Weight: 99.7 kg Height/Length: 74 in. BMI: 28.2 ALLERGIES: No Known Drug Allergy The patient's Home Medications are listed below: NONE. The source(s) of the original Home Medication information: Not obtained. The following Medications were given to the patient in the Emergency Department: IV NS IV Fluids bolus 0, then 1000 mL/hr, administered: 01/03/2017 10:32:00 AM Potassium Chloride [PO] PO 40 meq, administered: 01/03/2017 10:55:00 AM Famotidine [PO] PO 20 mg, administered: 01/03/2017 11:06:00 AM The following Medications were prescribed to the patient: Zofran (orally disintegrating tablets) 4 mg: take 1 orally every 6 hours as needed for nausea and vomiting. Dispense ten (10). No refill. Substitution is permissible. -- Lawrence Cole Dr. Alprazolam 0.5 mg: take 1 orally every 8 hours as needed for anxiety. Dispense fifteen (15). No refill. -- Lawrence Cole Dr.
--- NOTE | 2017-01-04 10:00 | ED MAR SUMMARY ---
..... Medication Administration Record Located Within [facility] [address] [place] [address] Patient: KIMMY MARY Visit ID: [id number] 31y, M Weight: 99.7 kg Height/Length: 74 in BMI: 28.2 ALLERGIES: No Known Drug Allergy Start 10:32 01/03/2017 Madeleine Moore R.N., Stop 11:40 01/03/2017 Madeleine Moore R.N. Medication Administered: IV NS (SALINE), Dose: IV Fluids over 1 hour(s), Rate: 1000 mL/hr, Dispensed: 1000 mL bag, Site: #1 left . Medication Ordered: IV NS : initial bolus none -, then 1000 mL/hr for X1 (NOW). Given 10:55 01/03/2017 Madeleine Moore R.N. Medication Administered: POTASSIUM CHLORIDE [PO] (POTASSIUM CHLORIDE ER), Dose: 40 meq Capsules PO. Medication Ordered: Potassium Chloride PO 40 meq (NOW). Given 11:06 01/03/2017 Madeleine Moore R.N. Medication Administered: FAMOTIDINE [PO], Dose: 20 mg Tablets PO. Medication Ordered: Famotidine PO 20 mg (NOW).
--- NOTE | 2017-01-04 10:00 | ED MAR SUMMARY ---
..... Medication Administration Record [facility] [address] [place] [address] Patient: KIMMY MARY Visit ID: [id number] 31y, M Weight: 99.7 kg Height/Length: 74 in BMI: 28.2 ALLERGIES: No Known Drug Allergy Start 10:32 01/03/2017 Madeleine Moore R.N., Stop 11:40 01/03/2017 Madeleine Moore R.N. Medication Administered: IV NS (SALINE), Dose: IV Fluids over 1 hour(s), Rate: 1000 mL/hr, Dispensed: 1000 mL bag, Site: #1 left . Medication Ordered: IV NS : initial bolus none -, then 1000 mL/hr for X1 (NOW). Given 10:55 01/03/2017 Madeleine Moore R.N. Medication Administered: POTASSIUM CHLORIDE [PO] (POTASSIUM CHLORIDE ER), Dose: 40 meq Capsules PO. Medication Ordered: Potassium Chloride PO 40 meq (NOW). Given 11:06 01/03/2017 Madeleine Moore R.N. Medication Administered: FAMOTIDINE [PO], Dose: 20 mg Tablets PO. Medication Ordered: Famotidine PO 20 mg (NOW).
== END 2017-01-03 15:05 | disposition home or self-care (01) ==
LOC: ED SRH 10:03
DX: F41.1 Generalized anxiety disorder (principal); A08.4 Viral intestinal infection, unspecified; E87.6 Hypokalemia; Z72.0 Tobacco use
CPT/HCPCS: 90004; 90074; 90098; 90100; 92720; 92750; 92760; 92761; 92762; 92763; 92764; 92765; 92766; 92767; 95059